=== PATIENT | female | born 1955 | race Caucasian/White ===

== ENCOUNTER 2019-03-07 05:14 | Day surgery (SDC) ==
--- NOTE | 2019-02-24 09:05 | EKG Report ---
Test Performed on : 02/24/2019 08:51:51 AM Test Reason : PAT Blood Pressure : / mmHG Vent. Rate : 085 BPM Atrial Rate : 085 BPM P-R Int : 152 ms QRS Dur : 122 ms QT Int : 404 ms P-R-T Axes : 069 -03 040 degrees QTc Int : 480 ms Normal sinus rhythm. Right bundle branch block Abnormal ECG No previous ECGs available Unconfirmed Result
[2019-02-24 09:24] LABS: BASO# 0.02 X1000 (0.0-0.2); BASO% 0.4 % (0.0-0.8); EOS# 0.32 X1000 (0.0-0.7); EOS% 6.2 % (0.0-10.0); HEMATOCRIT 36.8 % (37.0-47.0); HEMOGLOBIN 11.4 g/dL (12.0-16.0); LYMPH# 1.54 X1000 (1.2-3.4); LYMPH% 29.7 % (20.5-51.1); MCH 26.8 PG (27-31); MCV 86.6 FL (81-99); MONO# 0.56 X1000 (0.11-0.59); MONO% 10.8 % (1.7-9.3); MPV 11.3 FL (7.4-10.4); NEUT# 2.74 X1000 (1.4-6.5); NEUT% 52.9 % (42.2-75.2); PLT 246 X1000 (130-400); RBC 4.25 XMIL (4.2-5.4); RDW 13.5 % (11.5-14.5); WBC 5.18 X1000 (4.8-10.8)
--- NOTE | 2019-03-06 08:45 | HISTORY AND PHYSICAL ---
HISTORY: Patient is a 64-year-old female with a history of a prior total abdominal hysterectomy, a [place] tissue repair, and then a subsequent posterior compartment defect repair with placement of mesh. The patient is now having an apical anterior issue. She has got a history of a prior bariatric surgery involving some bypass near the gastric region, but no other abnormalities. On examination, she has primarily an anterior apical defect. The risks and benefits of sacral colposcopy were explained at length. She understands we are proceeding with robotic sacrocolpopexy that would involve mostly the anterior compartment, apex, and the very proximal portion of the posterior compartment. Again as I noted, the risks and benefits of this were explained at length to the patient in the office. PAST MEDICAL HISTORY: Positive for hypertension, fibromyalgia, osteoarthritis. SURGICAL HISTORY: Positive for bariatric surgery, abdominal hysterectomy, tonsillectomy, colonoscopy, 5 bilateral breast biopsies that were all benign, cholecystectomy with an incidental splenectomy, posterior compartment defect repair with a placement of a mesh in the posterior compartment, bilateral knee replacement, L2 through L4 fusion, and right rotator cuff repair. ALLERGIES: Morphine. CURRENT MEDICATIONS: Pantoprazole 40, levocetirizine 5, levothyroxine 112, Lyrica 75, tizanidine 4, Eszopiclone 3 mg, amlodipine/benazepril 5/40, Erwin 10s, pramipexole dihydrochloride 0.25. SOCIAL HISTORY: Negative for tobacco. Negative for drugs. Positive for EtOH use. FAMILY HISTORY: Noncontributory. PHYSICAL EXAMINATION: GENERAL: BMI is 31. HEENT: Normocephalic, atraumatic. PERRLA. EOMI. No thyromegaly. CV: Regular rate and rhythm without murmur, gallop, or rub. PULMONARY: Clear to auscultation, percussion. ABDOMEN: Soft. : Shows POP-Q stage II prolapse with it all being a proximal anterior compartment defect. NEUROLOGIC: Afocal. EXTREMITIES: With mild edema, negative clubbing or cyanosis. ASSESSMENT AND PLAN: Patient admitted at this time for robotic sacrocolpopexy. The posterior arm will be very short because of her prior mesh placement in the posterior compartment. The risks and benefits were discussed at length. cc: Edin Euceda MD
[2019-03-07] MEDS ORDERED: KEFZOL 2 GM/D5W 2 GM/50 ML IVPB ONE (05:36)
[2019-03-07] MEDS ORDERED: LR 1,000 ML ONE ×3 (05:36→08:50)
[2019-03-07] MEDS ORDERED: REGLAN ONE (05:36)
[2019-03-07] MEDS ORDERED: PEPCID ONE (05:36)
[2019-03-07] MEDS ORDERED: DIPRIVAN 1% ONE (06:28)
[2019-03-07] MEDS ORDERED: XYLOCAINE-MPF 2% ONE (06:29)
[2019-03-07] MEDS ORDERED: SENSORCAINE-MPF 0.5%/EPI 1:200,000 ONE (06:32)
--- NOTE | 2019-03-07 06:32 | H&P REVIEW ---
H&P Update H&P Review: H&P was reviewed and patient was examined, No change has occurred in the patient's condition
[2019-03-07] MEDS ORDERED: D10W 1,000 ML ONE (06:33)
[2019-03-07] MEDS ORDERED: VERSED ONE (06:35)
[2019-03-07] MEDS ORDERED: QUELICIN (DOSE) ONE (06:36)
[2019-03-07] MEDS ORDERED: FENTANYL ONE (06:37)
[2019-03-07] MEDS ORDERED: SUFENTA ONE (07:37)
[2019-03-07] MEDS ORDERED: SODIUM CHLORIDE 0.9% ONE (07:39)
[2019-03-07] MEDS ORDERED: ZOFRAN ONE (07:48)
[2019-03-07] MEDS ORDERED: DECADRON ONE (07:48)
[2019-03-07] MEDS ORDERED: METROGEL-VAGINAL 0.75% GEL ONE (08:07)
[2019-03-07] MEDS ORDERED: ROBINUL ONE (08:16)
[2019-03-07] MEDS ORDERED: TORADOL ONE (08:16)
[2019-03-07] MEDS ORDERED: LASIX ONE (08:16)
[2019-03-07] MEDS ORDERED: NEOSTIGMINE ONE (08:16)
--- NOTE | 2019-03-07 09:28 | OPERATIVE NOTE ---
PROCEDURE DATE: 03/07/2019 PREOPERATIVE DIAGNOSIS: Pelvic organ prolapse. POSTOPERATIVE DIAGNOSES: 1. Pelvic organ prolapse. 2. Abdominal adhesive disease. PROCEDURE: Diagnostic laparoscopy, anterior compartment defect repair, sacrospinous ligament suspension with mesh, cystoscopy. SURGEON: Edin Euceda MD RESEARCH PROGRAM ASSISTANT: Dr. Lisa Betancourt. HISTORY: The patient is a 64-year-old female with history of prior posterior compartment defect repair who was having increasing problems with symptomatic pelvic organ prolapse. Another physician had done prior [place] tissue repair and she had a failure in the anterior and apical portion. We discussed pessary management as well as sacrocolpopexy and [place] tissue repair and she wished to proceed with surgical intervention with sacrocolpopexy. OPERATIVE FINDINGS: The patient was found to have dense abdominal adhesive disease. Upon entering the peritoneal cavity, we were unable to visualize any portion of the anterior abdomen whatsoever because of the dense adhesions involving the entire abdominal cavity. We could not find a window to get through and we had just missed bowel going through with our initial trocar. Because of this, we went below. In doing our dissection for placement of mid urethral sling she had another sling in place which we were unaware of. OPERATIVE PROCEDURE: The patient was patient taken to the operating room and placed in supine position. After adequate general anesthesia obtained, she is placed in the [facility] and her abdomen and vagina was prepped and draped in the usual fashion. Because of her body habitus and obesity, we made a supraumbilical incision, which was made after infiltration of 0.25% Marcaine with epinephrine. A 12 mm port and sheath were introduced through this incision in the abdominal cavity. The contents of the abdomen were visualized. Therefore, insufflation with CO2 to an intra-abdominal pressure of 14 was performed. At this time, we actually discovered that we had gone through the omentum that was densely adhered to the anterior abdominal wall. We were unable to get around any of this omental caking throughout. She had a small piece of bowel that was also adhered just cephalad to our incision. We were able to visualize the edge of the bowel with our scope, so we feel confident that we did not cause any type of bowel injury. We were unable to obtain any other visualization of the anterior abdominal wall at all so decision was made to abandon this portion of the procedure. We stopped. We deflated the abdomen and closed the supraumbilical incision with a 0 Vicryl ligature on a UR needle. The skin incision was closed with 4.0 Vicryl ligature in a subcuticular fashion. We then went below vaginally and grasped the defect anteriorly. We grasped it with Allis clamps proximal and distal and then injected approximately 20 mL of 0.25% Marcaine with epinephrine diluted 50% with normal saline. Hydrodissection was performed. A sagittal incision was made. We easily sharply and bluntly dissected out laterally and up to the ischial spine starting from the anterior approach. We were able to visualize her prior sacrospinous ligament suspension from the posterior compartment defect and was in place and intact. Upon doing this, we then trimmed an anterior piece of mesh to fit just the apex similar to an apical suspension. We placed 2 stay sutures through the vaginal apex with 0 Vicryl ligature and then ran these sutures through the mesh prior to mesh placement through the ligament. We then used a Stat Tack device to place these arms of the mesh up at the ligament approximately 2 cm medial of the ischial spine. The stay sutures had already been run through the apical portion of this mesh and the mesh was only approximately 3 cm wide and away from our surgical incision site. After doing this, we then tied our stay sutures down to elevate the vaginal mucosa through this mesh. Vaginally, we then trimmed off approximately 2 to 3 cm of vaginal mucosa from each side and closed the mid vaginal incision with a running 0 Vicryl ligature. We then turned our attention towards placement of the sling. The urethra was grasped proximally and distally and approximately 8 to 10 mL of the same local anesthetic was injected for hydrodissection. A sagittal incision was made and we began dissecting up towards the ischial pubic ramus. However, we began to feel mesh in this area as well. We were unaware of the prior mesh sling placement by another physician. Decision was made to abandon this portion of the procedure, so we closed this incision. We performed cystoscopy. Both ureters were effluxing urine and there was no abnormalities within the bladder or the urethra. Cystoscope was removed and a Delatorre catheter was replaced. Rectal examination was performed. There was no impingement on the rectum and no abnormalities. The patient was taken out of low adjustable stirrups. She was awakened and taken recovery room with vital signs stable. Sponge count, instrument count, and needle counts correct x3. cc: Edin Euceda MD
[2019-03-07] MEDS ORDERED: NORCO-5 PO PRN (10:45)
[2019-03-07] MEDS ORDERED: ZOFRAN ODT PO PRN (10:45)
[2019-03-07] MEDS: LR 1,000 ML IV SCH ×2 (10:45→17:16)
--- NOTE | 2019-03-07 14:34 | PROGRESS NOTE ---
DATE: 03/07/2019 SUBJECTIVE: Patient is now approximately 4 to 5 hours after having diagnostic laparoscopy with sacrospinous suspension, anterior compartment defect repair with placement of Restorelle mesh at the apex, and cystoscopy. She is alert and oriented, and sitting in her bed. Her significant other is in the room with her also. OBJECTIVE: Afebrile. Vital signs stable. Urine output is adequate and clear. ASSESSMENT AND PLAN: Routine postoperative monitoring. We will plan on removal of the Delatorre catheter in the morning, and if she has successful completion of her voiding trial she will be discharged home. We did discuss the operative procedure with the patient and the reason for having to change sharp from our planned procedure because of the dense adhesive disease, and she expressed understanding. cc: Edin Euceda MD
[2019-03-07] MEDS: TORADOL IV SCH ×2 (17:17→21:14)
[2019-03-07] MEDS ORDERED: CYMBALTA PO SCH (21:00)
[2019-03-07] MEDS ORDERED: RESTORIL PO SCH (21:00)
[2019-03-07] MEDS ORDERED: ZANAFLEX PO SCH (21:00)
[2019-03-07] MEDS ORDERED: NORVASC PO SCH (21:00)
[2019-03-07] MEDS ORDERED: LOTENSIN PO SCH (21:00)
[2019-03-07] MEDS ORDERED: AMLODIPINE BESYLATE PO SCH (21:00)
[2019-03-07] MEDS ORDERED: MIRAPEX PO SCH (21:00)
[2019-03-07] MEDS ORDERED: BENAZEPRIL PO SCH (21:00)
[2019-03-07] MEDS: COLACE PO SCH (21:13)
[2019-03-07] MEDS: PERIDEX MT SCH (21:14)
[2019-03-08] MEDS: TORADOL IV SCH ×2 (04:08→09:51)
[2019-03-08] MEDS ORDERED: PROTONIX PO SCH (07:00)
[2019-03-08] MEDS ORDERED: SYNTHROID PO SCH (07:00)
[2019-03-08 07:32] VITALS: BP 116/57
--- NOTE | 2019-03-08 08:31 | DISCHARGE SUMMARY ---
ADMISSION DATE: 03/07/2019 DISCHARGE DATE: 03/08/2019 PRINCIPAL DIAGNOSIS: Pelvic organ prolapse. OTHER DIAGNOSIS: Pelvic adhesive disease. PROCEDURE: Diagnostic laparoscopy, anterior compartment defect repair, sacrospinous ligament suspension with use of mesh, and cystoscopy. SURGEON: Dr. Edin Euceda. ANESTHESIA: General. HISTORY: The patient is a 64-year-old female with multiple medical comorbidities, who was having problems with advanced stage prolapse, who was admitted for surgical intervention. HOSPITAL COURSE: Patient underwent the above-stated procedure. Blood loss at the time was approximately 50 mL. Her postoperative course has been uncomplicated. She is currently undergoing voiding trial, and will be discharged home with instructions for followup in 4 weeks. DISCHARGE MEDICATIONS: [place] 5 and Colace. DISCHARGE DISPOSITION: She was instructed in a regular diet and decreased activity. cc: Edin Euceda MD
[2019-03-08] MEDS ORDERED: LYRICA PO SCH (09:00)
[2019-03-08] MEDS: PERIDEX MT SCH (09:51)
[2019-03-08] MEDS: COLACE PO SCH (09:51)
== END 2019-03-08 12:01 | disposition home or self-care (01) ==
LOC: PAT 05:14 → DIRADM 05:14 → OPS 05:14 → 4N 10:23 → OPS 03-08 12:01
PROVIDERS: ATTEND Obstetrics & Gynecology
CPT/HCPCS: 85025; 93005; 93010; 94761; 94799; A9270; C1771; J0330; J0690; J1100; J1885; J1940; J2250; J2405; J3010; J7120